=== PATIENT | male | born 1975 | race Caucasian/White ===

== ENCOUNTER 2020-07-08 13:23 | Emergency (ER) | payer BC ==
[2020-07-08 13:44] VITALS: RESP 18
--- NOTE | 2020-07-08 15:00 | ED ---
General Adult HPI - General Source: patient, RN notes reviewed Mode of arrival: ambulatory Limitations: no limitations <Madhu Garay - Last Filed: 07/08/20 18:35> <Sienna Gonzales - Last Filed: 07/20/20 17:44> - General Chief complaint: Recheck/Abnormal Lab/Rx Stated complaint: rt eye irritation, poss foreign body Time Seen by Provider: 07/08/20 14:51 - History of Present Illness Initial comments: Patient is a 44-year-old male that presents to the emergency department complaining of corneal abrasion which was diagnosed at [facility]. He was sent here by [facility] for an elevated blood pressure. He notes that he skipped his physical last year but has one scheduled for a week with his primary care. He notes that he was camping something in his eye rinsed it out came home started using some leftover antibiotic drops that he had a home. He notes that he did try calling his eye doctor but they'll consult. He notes that since using the drops as prescribed on the bottle his eye started to feel better. He did note that he got fluoroscene eye stain at the urgent care which [place] diagnosed with corneal abrasion. He denied any change in vision blurry vision headache lightheadedness dizziness chest pain shortness breath nausea vomiting diarrhea constipation fever fatigue chills (Madhu Garay) - Related Data Previous Rx's Medication Instructions Recorded amLODIPine [Norvasc] 5 mg PO DAILY 14 Days #14 tab 07/08/20 Allergies Allergy/AdvReac Type Severity Reaction Status Date / Time amoxicillin Allergy Rash/Hives Verified 07/08/20 13:41 Review of Systems ROS Other: All systems not noted in ROS Statement are negative. <Madhu Garay - Last Filed: 07/08/20 18:35> ROS Other: All systems not noted in ROS Statement are negative. <Sienna Gonzales - Last Filed: 07/20/20 17:44> ROS Statement: Those systems with pertinent positive or pertinent negative responses have been documented in the HPI. Past Medical History Past Medical History: No Reported History History of Any Multi-Drug Resistant Organisms: None Reported Past Surgical History: Orthopedic Surgery Additional Past Surgical History / Comment(s): left ankle surgery, left elbow, Past Psychological History: No Psychological Hx Reported Smoking Status: Current every day smoker Past Alcohol Use History: Daily Past Drug Use History: None Reported <Madhu Garay - Last Filed: 07/08/20 18:35> General Exam Limitations: no limitations General appearance: alert, in no apparent distress Head exam: Present: atraumatic, normocephalic, normal inspection Eye exam: Present: normal appearance, PERRL, EOMI, conjunctival injection (Right eye). Absent: scleral icterus, periorbital swelling ENT exam: Present: normal exam, mucous membranes moist Neck exam: Present: normal inspection Respiratory exam: Present: normal lung sounds bilaterally. Absent: respiratory distress, wheezes, rales, rhonchi, stridor Cardiovascular Exam: Present: regular rate, normal rhythm, normal heart sounds. Absent: systolic murmur, diastolic murmur, rubs, gallop, clicks GI/Abdominal exam: Present: soft, normal bowel sounds. Absent: distended, tenderness, guarding, rebound, rigid Extremities exam: Present: normal inspection, full ROM, normal capillary refill. Absent: tenderness, pedal edema, joint swelling, calf tenderness Neurological exam: Present: alert, oriented X3, CN II-XII intact Psychiatric exam: Present: normal affect, normal mood Skin exam: Present: warm, dry, intact, normal color. Absent: rash <Madhu Garay - Last Filed: 07/08/20 18:35> Course Vital Signs 07/08/20 07/08/20 07/08/20 13:41 16:48 17:39 Temperature 98.4 F Pulse Rate 100 83 81 Respiratory 18 18 18 Rate Blood Pressure 157/100 168/110 163/115 O2 Sat by Pulse 98 97 95 Oximetry 07/08/20 07/08/20 18:30 18:54 Temperature 98 F Pulse Rate 75 76 Respiratory 18 18 Rate Blood Pressure 164/104 154/102 O2 Sat by Pulse 97 96 Oximetry Medical Decision Making - Lab Data Result diagrams: 07/08/20 15:17 07/08/20 15:17 <Madhu Garay - Last Filed: 07/08/20 18:35> - Lab Data Result diagrams: 07/08/20 15:17 07/08/20 15:17 <Sienna Gonzales - Last Filed: 07/20/20 17:44> - Medical Decision Making 44-year-old male sent here by [facility] for recheck and evaluation of high blood pressure. Basic labs, patient monitor initiated. Blood pressure elevated while in bed, 5 mg of Norvasc ordered. 20 mg labetalol ordered. Patient denies any symptoms of elevated blood pressure such as headache change in vision. Case discussed with Dr. Gonzales, patient can discharge home follow up primary care. (Madhu Garay) I was available for consultation in the emergency department. The history and physical exam were done by the midlevel provider. I was consulted for this patients care. I reviewed the case with the midlevel provider and based on their presentation of the patient, I agree with the assessment, medical decision making and plan of care as documented. Chart was dictated using [employer] dictation software. Attempts were made to correct any dictation errors however some typographical errors may persist. Patient was seen during a national state of emergency due to the Covid-19 pandemic. (Sienna Gonzales) - Lab Data Lab Results 07/08/20 07/08/20 Range/Units 15:17 15:17 WBC 7.7 (3.8-10.6) k/uL RBC 5.08 (4.30-5.90) m/uL Hgb 17.1 (13.0-17.5) gm/dL Hct 49.6 (39.0-53.0) % MCV 97.7 (80.0-100.0) fL MCH 33.7 (25.0-35.0) pg MCHC 34.5 (31.0-37.0) g/dL RDW 12.1 (11.5-15.5) % Plt Count 243 (150-450) k/uL MPV 6.9 Neutrophils % 63 % Lymphocytes % 29 % Monocytes % 5 % Eosinophils % 2 % Basophils % 1 % Neutrophils # 4.8 (1.3-7.7) k/uL Lymphocytes # 2.2 (1.0-4.8) k/uL Monocytes # 0.4 (0-1.0) k/uL Eosinophils # 0.2 (0-0.7) k/uL Basophils # 0.1 (0-0.2) k/uL Sodium 139 (137-145) mmol/L Potassium 4.3 (3.5-5.1) mmol/L Chloride 105 (98-107) mmol/L Carbon Dioxide 30 (22-30) mmol/L Anion Gap 4 mmol/L BUN 8 L (9-20) mg/dL Creatinine 0.69 (0.66-1.25) mg/dL Est GFR (CKD-EPI)AfAm >90 (>60 ml/min/1.73 sqM) Est GFR (CKD-EPI)NonAf >90 (>60 ml/min/1.73 sqM) Glucose 103 H (74-99) mg/dL Calcium 9.9 (8.4-10.2) mg/dL Total Bilirubin 0.5 (0.2-1.3) mg/dL AST 31 (17-59) U/L ALT 23 (4-49) U/L Alkaline Phosphatase 77 (38-126) U/L Total Protein 7.3 (6.3-8.2) g/dL Albumin 4.6 (3.5-5.0) g/dL Disposition Is patient prescribed a controlled substance at d/c from ED?: No Time of Disposition: 18:36 <Madhu Garay - Last Filed: 07/08/20 18:35> <Sienna Gonzales - Last Filed: 07/20/20 17:44> Clinical Impression: Elevated blood pressure reading Disposition: HOME SELF-CARE Condition: Stable Instructions (If sedation given, give patient instructions): Hypertension (ED) Additional Instructions: Please return to the Emergency Department if symptoms worsen or any other concerns. Follow-up with primary care as planned. Continue to use antibiotic eyedrops for corneal abrasion. If any symptoms such as headache, blurred vision please return for further evaluation. Prescriptions: amLODIPine [Norvasc] 5 mg PO DAILY 14 Days #14 tab Referrals: Molina Miles DO [Primary Care Provider] - 1-2 days
[2020-07-08 15:24] LABS: Basophils # (A) 0.1 k/uL (0-0.2); Basophils % (A) 1 %; Eosinophils # (A) 0.2 k/uL (0-0.7); Eosinophils % (A) 2 %; HCT 49.6 % (39.0-53.0); HGB 17.1 gm/dL (13.0-17.5); Lymphocytes # (A) 2.2 k/uL (1.0-4.8); Lymphocytes % (A) 29 %; MCH 33.7 pg (25.0-35.0); MCHC 34.5 g/dL (31.0-37.0); MCV 97.7 fL (80.0-100.0); Mean Platelet Volume 6.9; Monocytes # (A) 0.4 k/uL (0-1.0); Monocytes % (A) 5 %; Neutrophils # (A) 4.8 k/uL (1.3-7.7); Neutrophils % (A) 63 %; Platelet Count 243 k/uL (150-450); RBC 5.08 m/uL (4.30-5.90); RDW 12.1 % (11.5-15.5); WBC 7.7 k/uL (3.8-10.6)
[2020-07-08 15:34] LABS: ALT 23 U/L (4-49); AST 31 U/L (17-59); African American GFR (CKD) >90 (>60 ml/min/1.73 sqM); Albumin 4.6 g/dL (3.5-5.0); Alkaline Phosphatase 77 U/L (38-126); Anion Gap 4 mmol/L; Blood Urea Nitrogen 8 mg/dL (9-20); Calcium 9.9 mg/dL (8.4-10.2); Carbon Dioxide 30 mmol/L (22-30); Chloride 105 mmol/L (98-107); Glucose 103 mg/dL (74-99); Non-African American GFR(CKD) >90 (>60 ml/min/1.73 sqM); Potassium 4.3 mmol/L (3.5-5.1); Sodium 139 mmol/L (137-145); Total Bilirubin 0.5 mg/dL (0.2-1.3); Total Protein 7.3 g/dL (6.3-8.2)
[2020-07-08] MEDS ORDERED: amLODIPine 5 MG TAB PO STA (15:58)
[2020-07-08] MEDS ORDERED: LABETALOL 5 MG/ML VIAL MDV IVP STA (17:52)
[2020-07-08 18:56] VITALS: BP 154/102; PULSE 76; TEMP 98
== END 2020-07-08 18:53 | disposition home or self-care (01) ==
LOC: EC 13:23
DX: R03.0 Elevated blood-pressure reading, without diagnosis of hypertension (principal); F17.200 Nicotine dependence, unspecified, uncomplicated
CPT/HCPCS: 36415; 80053; 85025; 96374; 99283

== ENCOUNTER 2021-10-31 08:08 | Day surgery (SDC) | payer BC ==
[2021-10-29 13:32] VITALS: BMI 28.7
[~2021-10-31 08:08] MED LIST: LACTATED RINGERS 1,000 ML IV SCH
[2021-10-31] MEDS ORDERED: LIDOCAINE 1% (10MG/ML) FOR IV START INTRADERMA ONE (08:40)
[2021-10-31 08:43] VITALS: RESP 16; TEMP 97.9
[2021-10-31] MEDS ORDERED: LIDOCAINE 2% INJ 20 MG/ML (2 ML VIAL) ONE (09:35)
[2021-10-31] MEDS ORDERED: PROPOFOL 10 MG/ML 20 ML VIAL IV ONE (09:35)
--- NOTE | 2021-10-31 10:00 | P.PCN ---
Date of Procedure: 10/31/21 Procedure(s) Performed: BRIEF HISTORY: Patient is a 46-year-old pleasant white male scheduled for an elective colonoscopy as a part of screening for colon cancer and family history of colon cancer. His sister was diagnosed with colon cancer at age 40 and his uncle at age 60. PROCEDURE PERFORMED: Colonoscopy snare polypectomy and biopsy. PREOPERATIVE DIAGNOSIS: Screening for colon cancer/family history of colon cancer. IV sedation per Anesthesia. PROCEDURE: After informed consent was obtained, the patient, was brought into the endoscopy unit. IV sedation was administered by Anesthesia under continuous monitoring. Digital rectal examination was normal. Initially the Olympus CF-160 flexible video colonoscope was then inserted in the rectum, gradually advanced into the cecum without any difficulty. Careful examination was performed as the scope was gradually being withdrawn. Ileocecal valve and the appendiceal orifice were visualized and appeared normal. Prep was excellent. Mucosa of the cecum, ascending colon, appeared normal. The hepatic flexure there was a 2 cm linear polyp that was removed by snare polypectomy followed by biopsy and complete polypectomy was accomplished. In the transverse colon there was a 5 mm polyp removed by snare polypectomy. Rest of the transverse colon, descending colon, sigmoid colon, and rectum appeared normal. In the rectum there was a 3 mm and 5 mm polyp removed by snare polypectomy. Retroflexion was performed in the rectum and no lesions were seen. The patient tolerated the procedure well. IMPRESSION: 2 cm linear hepatic flexure polyp status post polypectomy followed by biopsy 5 mm transverse colon polyp status post polypectomy 3 mm and 5 mm rectal polyps status post polypectomy RECOMMENDATIONS: Findings of this examination were discussed with the patient as well as his family. He was advised to follow with the biopsy results. Recommend repeat colonoscopy in 3 years based on the biopsy results..
[2021-10-31 10:20] VITALS: BP 107/79; PULSE 73
== END 2021-10-31 10:30 | disposition home or self-care (01) ==
LOC: ORWHC2ENDO 08:08
PROVIDERS: ATTEND Internal Medicine Gastroenterology
DX: Z12.11 Encounter for screening for malignant neoplasm of colon (principal); D12.3 Benign neoplasm of transverse colon; K62.1 Rectal polyp; K62.3 Rectal prolapse; Z80.0 Family history of malignant neoplasm of digestive organs; Z88.0 Allergy status to penicillin; I10 Essential (primary) hypertension; E78.5 Hyperlipidemia, unspecified; F17.210 Nicotine dependence, cigarettes, uncomplicated; Z96.621 Presence of right artificial elbow joint; Z96.661 Presence of right artificial ankle joint; Z79.899 Other long term (current) drug therapy
CPT/HCPCS: 88305; 45380; 45385; J2704; J2001

== ENCOUNTER 2022-07-22 13:22 | Observation (INO) | payer BC ==
[2022-07-22] MEDS ORDERED: ASPIRIN 81 MG PO STA (14:09)
[2022-07-22] MEDS ORDERED: HEPARIN SODIUM 1,000 UN/ML (10ML VL) IV ONE (14:09)
[2022-07-22] MEDS ORDERED: HEPARIN SOD,PORK IN 0.45% NACL 25,000 UNIT in 0.45% NACL 1 250ML.BAG IV SCH (14:15)
[2022-07-22 14:43] LABS: Basophils % (A) 0 %; Eosinophils # (A) 0.2 k/uL (0-0.7); Eosinophils % (A) 3 %; HCT 46.6 % (39.0-53.0); HGB 15.6 gm/dL (13.0-17.5); Lymphocytes # (A) 1.6 k/uL (1.0-4.8); Lymphocytes % (A) 26 %; MCH 32.7 pg (25.0-35.0); MCHC 33.4 g/dL (31.0-37.0); Mean Platelet Volume 7.2; Monocytes # (A) 0.5 k/uL (0-1.0); Monocytes % (A) 8 %; Neutrophils # (A) 3.9 k/uL (1.3-7.7); Neutrophils % (A) 62 %; Platelet Count 257 k/uL (150-450); RBC 4.76 m/uL (4.30-5.90); WBC 6.2 k/uL (3.8-10.6)
[2022-07-22 14:52] LABS: ALT 27 U/L (4-49); AST 28 U/L (17-59); African American GFR (CKD) >90 (>60 ml/min/1.73 sqM); Albumin 4.1 g/dL (3.5-5.0); Alkaline Phosphatase 80 U/L (38-126); Anion Gap 10 mmol/L; Blood Urea Nitrogen 12 mg/dL (9-20); Calcium 9.2 mg/dL (8.4-10.2); Carbon Dioxide 26 mmol/L (22-30); Chloride 102 mmol/L (98-107); Glucose 157 mg/dL (74-99); Magnesium 1.9 mg/dL (1.6-2.3); Non-African American GFR(CKD) >90 (>60 ml/min/1.73 sqM); Partial Thromboplastin Time 23.8 sec (22.0-30.0); Potassium 4.1 mmol/L (3.5-5.1); Prothrombin Time 10.4 sec (9.0-12.0); Sodium 138 mmol/L (137-145); Total Bilirubin 0.4 mg/dL (0.2-1.3); Total Protein 6.6 g/dL (6.3-8.2)
--- NOTE | 2022-07-22 15:35 | ED ---
Chest Pain HPI - General Chief Complaint: Chest Pain Stated Complaint: dr ferrari- blood work - muscle injury by heart Time Seen by Provider: 07/22/22 13:58 Source: patient, RN notes reviewed Mode of arrival: ambulatory Limitations: no limitations - History of Present Illness Initial Comments: 47-year-old male presents emergency Department chief complaint of abnormal heart enzymes. Patient went to his PCP this morning for any physical. He was having some indigestion discomfort at the office so he lab work and received a phone call stating his troponin was elevated. Patient does not have current symptoms and chest pain. Patient does have history of hyperlipidemia, hypertension family history and smoking history. Patient denies any prior stress test. Denies back pain - Related Data Home Medications Medication Instructions Recorded Confirmed amLODIPine [Norvasc] 5 mg PO HS 10/29/21 07/22/22 lisinopriL [Zestril] 20 mg PO DAILY 10/29/21 07/22/22 Atorvastatin [Lipitor] 10 mg PO HS 07/22/22 07/22/22 Allergies Allergy/AdvReac Type Severity Reaction Status Date / Time amoxicillin Allergy Rash/Hives Verified 07/22/22 14:41 Review of Systems ROS Statement: Those systems with pertinent positive or pertinent negative responses have been documented in the HPI. ROS Other: All systems not noted in ROS Statement are negative. EKG Findings - EKG Comments: EKG Findings:: EKG performed at 14:01 sinus rhythm rate of 99 ME 154 QRS 88 QT/QTC 337/393 - EKG Results: EKG: interpreted by FERNANDEZ Past Medical History Past Medical History: Hypertension History of Any Multi-Drug Resistant Organisms: None Reported Past Surgical History: Orthopedic Surgery Additional Past Surgical History / Comment(s): left ankle surgery, left elbow, Past Anesthesia/Blood Transfusion Reactions: No Reported Reaction Past Psychological History: No Psychological Hx Reported Smoking Status: Current every day smoker Past Alcohol Use History: Daily Past Drug Use History: Marijuana - Past Family History Sister(s) Family Medical History: Cancer General Exam Limitations: no limitations General appearance: alert, in no apparent distress Head exam: Present: atraumatic, normocephalic, normal inspection Eye exam: Present: normal appearance, PERRL, EOMI. Absent: scleral icterus, conjunctival injection, periorbital swelling ENT exam: Present: normal exam, mucous membranes moist Neck exam: Present: normal inspection. Absent: tenderness, meningismus, lymphadenopathy Respiratory exam: Present: normal lung sounds bilaterally. Absent: respiratory distress, wheezes, rales, rhonchi, stridor Cardiovascular Exam: Present: regular rate, normal rhythm, normal heart sounds. Absent: systolic murmur, diastolic murmur, rubs, gallop, clicks GI/Abdominal exam: Present: soft, normal bowel sounds. Absent: distended, tenderness, guarding, rebound, rigid Course Vital Signs 07/22/22 13:51 Temperature 99 F Pulse Rate 100 Respiratory 20 Rate Blood Pressure 152/88 O2 Sat by Pulse 98 Oximetry Chest Pain MDM - MDM Was pt. sent in by a medical professional or institution (, PA, CARE NAVIGATOR, urgent care, hospital, or care home...) When possible be specific @ -PCP Dr. Miles Did you speak to anyone other than the patient for history (EMS, parent, family, police, friend...)? What history was obtained from this source @ -[Discuss past medical history and laboratory results with in the room] Did you review nursing and triage notes (agree or disagree)? Why? @ -[I reviewed and agree with nursing and triage notes] Were old charts reviewed (outside hosp., previous admission, EMS record, old EKG, old radiological studies, urgent care reports/EKG's, care home records)? Report findings @ -[No old charts were reviewed] Differential Diagnosis (chest pain, altered mental status, abdominal pain women, abdominal pain men, vaginal bleeding, weakness, fever, dyspnea, syncope, headache, dizziness, GI bleed, back pain, seizure, CVA, palpatations, mental health, musculoskeletal)? @ -[Differential Chest Pain: Stable Angina, Unstable Angina, STEMI, NSTEMI Aortic Dissection, Pneumothorax, Musculoskeletal, Esophageal Spasm GERD, Cholecystitis, Pancreatitis, Zoster, this is not meant to be an all-inclusive list. able] EKG interpreted by me (3pts min.). @ -[As above] X-rays interpreted by me (1pt min.). @ -[Chest x-ray shows no acute cardiopulmonary process. No pneumothorax or in filtrate] CT interpreted by me (1pt min.). @ -[None done] U/S interpreted by me (1pt. min.). @ -[None done] What testing was considered but not performed or refused? (CT, X-rays, U/S, labs)? Why? @ -[None] What meds were considered but not given or refused? Why? @ -[None] Did you discuss the management of the patient with other professionals (professionals i.e. , PA, CARE NAVIGATOR, lab, RT, psych nurse, social secretary, contact printer dry film, teacher, pharmaceutical officer, case worker)? Give summary @ -[No] Was smoking cessation discussed for >3mins.? @ -[No] Was critical care preformed (if so, how long)? @ -[No] Were there social determinants of health that impacted care today? How? (Homelessness, low income, unemployed, alcoholism, drug addiction, transportation, low edu. Level, literacy, decrease access to med. care, care home, rehab)? @ -[No] Was there de-escalation of care discussed even if they declined (Discuss DNR or withdrawal of care, Hospice)? DNR status @ -[No] What co-morbidities impacted this encounter? (DM, HTN, Smoking, COPD, CAD, Cancer, CVA, ARF, Chemo, Hep., AIDS, mental health diagnosis, sleep apnea, morbid obesity)? @ -[Hyperlipidemia, hypertension, smoking history] Was patient admitted / discharged? Hospital course, mention meds given and route, prescriptions, significant lab abnormalities, going to OR and other pertinent info. @ -[Admitted patient had outpatient high sensitivity troponin that was elevated. His troponin here is negative patient does have multiple risk factors will be admitted for cardiac rule out.] Undiagnosed new problem with uncertain prognosis? @ -[No] Drug Therapy requiring intensive monitoring for toxicity (Heparin, Nitro, Insulin, Cardizem)? @ -[No] Were any procedures done? @ -[No] Diagnosis/symptom? @ -[Chest pain] Acute, or Chronic, or Acute on Chronic? @ -[Acute] Uncomplicated (without systemic symptoms) or Complicated (systemic symptoms)? @ -[Complicated] Side effects of treatment? @ -[No] Exacerbation, Progression, or Severe Exacerbation? @ -[No] Poses a threat to life or bodily function? How? (Chest pain, [place], [place], pneumonia, PE, COPD, DKA, ARF, appy, cholecystitis, CVA, Diverticulitis, Homicidal, Suicidal, threat to staff... and all critical care pts) @ -[Yes patient has chest and risk for cardiac arrest Disposition Clinical Impression: Chest pain Disposition: ADMITTED IP TO THIS HOSP Referrals: Molina Miles DO [Primary Care Provider] - 1-2 days Time of Disposition: 16:11
--- NOTE | 2022-07-22 16:10 | XR ---
EXAMINATION TYPE: XR chest 2V DATE OF EXAM: 07/22/2022 COMPARISON: NONE HISTORY: Chest pain. TECHNIQUE: Frontal and lateral views of the chest are obtained. FINDINGS: There is no focal air space opacity, pleural effusion, or pneumothorax seen. The cardiac silhouette size is within normal limits. Dextroconvex scoliosis centered mid thoracic spine. Overlyin g EKG leads. IMPRESSION: No acute cardiopulmonary process.
[2022-07-22] MEDS ORDERED: NITROGLYCERIN SL TABS 0.4 MG TAB SUBLINGUAL PRN (16:11)
[2022-07-22] MEDS ORDERED: amLODIPine 5 MG TAB PO SCH (21:00)
[2022-07-22] MEDS ORDERED: ATORVASTATIN 10 MG TAB PO SCH (21:00)
[2022-07-22] MEDS ORDERED: HEPARIN SODIUM 1,000 UN/ML (10ML VL) IV PRN (23:38)
[2022-07-23 00:34] VITALS: RESP 18
[2022-07-23 07:29] VITALS: BP 128/87; PULSE 75; TEMP 97.9
[2022-07-23] MEDS ORDERED: ASPIRIN 325 MG TAB PO SCH (09:00)
[2022-07-23] MEDS ORDERED: lisinopriL 20 MG TAB PO SCH (09:00)
--- NOTE | 2022-07-23 10:07 | P.CRDCN ---
History of Present Illness History of present illness: HISTORY OF PRESENT ILLNESS: This is a 47-year-old male with a past medical history significant for hypertension and hyperlipidemia. 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 We have been asked to see the patient in consultation for chest pain. Patient examined at the bedside. Patient states yesterday he went for a routine physical at his primary care office. He mentioned to his physician that he has been having heartburn recently. Apparently they gigi a troponin level which came in to be abnormal. Records from their office revealed a high sensitivity troponin level of 183. The patient was directed to come to the emergency room. The patient has had 3 subsequent negative troponin levels drawn at the hospital. The patient denies having any chest pain or pressure. He denies any shortness of breath. He states he is feeling well and is hoping to be discharged home. * EKG reveals sinus mechanism with no signs of acute ischemia * Chest xray negative for acute process * Laboratory data: WBC 6.2. Hemoglobin 15.6. Platelet count 257. Sodium 138. Potassium 4.1. BUN 12. Creatinine 0.62. Magnesium 1.9. Troponin negative 3. * Current home cardiac medications include lisinopril 20 mg daily, amlodipine 5 mg at night, and Lipitor 10 mg at night REVIEW OF SYSTEMS: At the time of my exam: CONSTITUTIONAL: Denies fever or chills. HEENT: Denies blurred vision, vision changes, or eye pain. Denies hemoptysis CARDIOVASCULAR: Denies chest pain. Denies orthopnea. Denies PND. Denies palpitations RESPIRATORY: Denies shortness of breath. GASTROINTESTINAL: Denies abdominal pain. Denies nausea or vomiting. HEMATOLOGIC: Denies bleeding disorders. GENITOURINARY: Denies any blood in urine. SKIN: Denies pruitis. Denies rash. PHYSICAL EXAM: VITAL SIGNS: Reviewed. GENERAL: Well-developed in no acute distress. HEENT: Head is normocephalic. Pupils are equal, round. Sclerae anicteric. Mucous membranes of the mouth are moist. Neck supple. No JVD or thyromegaly LUNGS: Respirations even and unlabored. Lungs essentially clear to auscultation bilaterally. HEART: Regular rate and rhythm. S1 and S2 heard. ABDOMEN: Soft. Nondistended. Nontender. EXTREMITIES: Normal range of motion. No clubbing or cyanosis. Peripheral pulses intact. No lower extremity edema NEUROLOGIC: Awake and alert. Oriented x 3. ASSESSMENT: Chest pain, ruled out, patient denies having any chest pain or pressure Elevated troponin at his PCP office, possible lab error as patient has had 3 subsequent negative troponins here Hypertension Hyperlipidemia PLAN: Acute coronary event has been ruled out Resume home cardiac medications Increase Lipitor to 20 mg at night Patient to be discharged home today from a cardiac standpoint Will complete echocardiogram and stress test on an outpatient basis Nurse practitioner note has been reviewed by physician. Signing provider agrees with the documented findings, assessment, and plan of care. Past Medical History Past Medical History: Hypertension History of Any Multi-Drug Resistant Organisms: None Reported Past Surgical History: Orthopedic Surgery Additional Past Surgical History / Comment(s): left ankle surgery, left elbow, Past Anesthesia/Blood Transfusion Reactions: No Reported Reaction Past Psychological History: No Psychological Hx Reported Smoking Status: Current every day smoker Past Alcohol Use History: Daily Additional Past Alcohol Use History / Comment(s): STARTED SMOKING AT AGE 15 SMOKES 1PPD DRINKS 25-30 BEERS PER WEEK Past Drug Use History: Marijuana - Past Family History Sister(s) Family Medical History: Cancer Medications and Allergies Home Medications Medication Instructions Recorded Confirmed Type amLODIPine [Norvasc] 5 mg PO HS 10/29/21 07/22/22 History lisinopriL [Zestril] 20 mg PO DAILY 10/29/21 07/22/22 History Atorvastatin [Lipitor] 10 mg PO HS 07/22/22 07/22/22 History Allergies Allergy/AdvReac Type Severity Reaction Status Date / Time amoxicillin Allergy Rash/Hives Verified 07/22/22 14:41 Physical Exam Vitals: Vital Signs Temp Pulse Pulse Resp BP BP Pulse Ox 07/23/22 07:05 97.9 F 75 18 128/87 97 07/23/22 00:33 98.3 F 68 18 119/77 95 07/22/22 20:35 98.4 F 75 17 173/82 94 L 07/22/22 19:39 78 14 128/83 97 07/22/22 13:51 99 F 100 20 152/88 98 Intake and Output 07/22/22 07/23/22 07/23/22 22:59 06:59 14:59 Intake Total 80.5 Balance 80.5 Intake: Intake, IV Titration 80.5 Amount Heparin Sod,Pork in 0.45% 80.5 NaCl 25,000 unit In 0.45 % NaCl 1 250ml.bag @ 11. 03 UNITS/KG/HR 10.006 mls /hr IV .Q24H [facility] Rx#: [id number] Other: # Voids 1 1 Weight 90.718 kg Results 07/22/22 14:27 07/22/22 14:27 Cardiac Enzymes 07/22/22 07/22/22 07/22/22 Range/Units 14:27 14:27 16:37 AST 28 (17-59) U/L Troponin I <0.012 <0.012 (0.000-0.034) ng/mL 07/22/22 Range/Units 19:31 AST (17-59) U/L Troponin I <0.012 (0.000-0.034) ng/mL Coagulation 07/22/22 07/22/22 07/23/22 Range/Units 14:27 22:48 06:20 PT 10.4 (9.0-12.0) sec APTT 23.8 33.7 H 73.8 H (22.0-30.0) sec CBC 07/22/22 Range/Units 14:27 WBC 6.2 (3.8-10.6) k/uL RBC 4.76 (4.30-5.90) m/uL Hgb 15.6 (13.0-17.5) gm/dL Hct 46.6 (39.0-53.0) % Plt Count 257 (150-450) k/uL Comprehensive Metabolic Panel 07/22/22 Range/Units 14:27 Sodium 138 (137-145) mmol/L Potassium 4.1 (3.5-5.1) mmol/L Chloride 102 (98-107) mmol/L Carbon Dioxide 26 (22-30) mmol/L BUN 12 (9-20) mg/dL Creatinine 0.62 L (0.66-1.25) mg/dL Glucose 157 H (74-99) mg/dL Calcium 9.2 (8.4-10.2) mg/dL AST 28 (17-59) U/L ALT 27 (4-49) U/L Alkaline Phosphatase 80 (38-126) U/L Total Protein 6.6 (6.3-8.2) g/dL Albumin 4.1 (3.5-5.0) g/dL Current Medications Generic Name Dose Route Start Last Admin Trade Name Freq PRN Reason Stop Dose Admin Amlodipine Besylate 5 mg 07/22/22 21:00 07/22/22 21:07 Amlodipine 5 Mg Tab PO 5 mg HS COTY Administration Aspirin 325 mg 07/23/22 09:00 Aspirin 325 Mg Tab PO DAILY [facility] Atorvastatin Calcium 10 mg 07/22/22 21:00 07/22/22 21:07 Atorvastatin 10 Mg Tab PO 10 mg HS COTY Administration Heparin Sodium (Porcine) 0 unit 07/22/22 23:38 07/22/22 23:53 Heparin Sodium 1,000 Un/Ml (10ml Vl) IV 4,000 unit PER PROTOCOL PRN Administration Low PTT Protocol Heparin Sodium/Sodium Chloride 250 mls @ 10.006 mls/hr 07/22/22 14:15 07/22/22 23:31 25,000 unit/ Sodium Chloride IV 14.02 units/kg/hr .Q24H COTY 12.719 mls/hr Titration Protocol 11.03 UNITS/KG/HR Lisinopril 20 mg 07/23/22 09:00 Lisinopril 20 Mg Tab PO DAILY [facility] Nitroglycerin 0.4 mg 07/22/22 16:11 Nitroglycerin Sl Tabs 0.4 Mg Tab SUBLINGUAL Q5M PRN Chest Pain Intake and Output 07/22/22 07/23/22 07/23/22 22:59 06:59 14:59 Intake Total 80.5 Balance 80.5 Intake: Intake, IV Titration 80.5 Amount Heparin Sod,Pork in 0.45% 80.5 NaCl 25,000 unit In 0.45 % NaCl 1 250ml.bag @ 11. 03 UNITS/KG/HR 10.006 mls /hr IV .Q24H [facility] Rx#: [id number] Other: # Voids 1 1 Weight 90.718 kg 07/22/22 14:27 07/22/22 14:27
[2022-07-23 11:15] LABS: LDL Cholesterol,Calculated 70.6 mg/dL (0.0-131.0); VLDL Calculation 17.12 mg/dL (5.00-40.00)
--- NOTE | 2022-07-23 18:23 | P.HPIM ---
History of Present Illness H&P Date: 07/23/22 Chief Complaint: Uncomfortable chest pain This is a pleasant [address] Miles. Chronic stable medical conditions include hypertension, hyperlipidemia, nicotine dependence. Patient called for a physical exam to his family doctor. There he felt this uncomfortable sensation in the middle of the chest. Last about 15 minutes. No radiation. No dizziness no lightheadedness or shortness of breath. Apparently there was a small blip and positive troponin. Patient therefore was sent down to the ER. Troponin 0 been negative. Denies any shortness of breath. No prior cardiac history Review of systems: GEN.: None EYES: None HEENT: None NECK: None RESPIRATORY: None CARDIOVASCULAR: As above GASTROINTESTINAL: None GENITOURINARY: None MUSCULOSKELETAL: None LYMPHATICS: None HEMATOLOGICAL: None PSYCHIATRY: None NEUROLOGICAL: None Past medical history to include: Hypertension, hyperlipidemia Social history: Lives with his . Is a budget officer. Smokes a pack and a half a close to 32 years. Takes about 6-8 beers a night. Physical examination: VITAL SIGNS: 97.9, 75, 18, 128/87, 97% room air GENERAL: BMI 28.7, sitting up but awake comfortable. EYES: Pupils equal. Conjunctiva normal. HEENT: External appearance of nose and ears normal, oral cavity grossly normal. NECK: JVD not raised; masses not palpable. HEART: First and second heart sounds are normal; no edema. LUNGS: Respiratory rate normal; clear to auscultation. ABDOMEN: Soft, nontender, liver spleen not palpable, no masses palpable. PSYCH: Alert and oriented x3; mood and affect normal. MUSCULOSKELETAL:No Clubbing/cyanosis;muscles-grossly intact NEUROLOGICAL: Cranial nerves grossly intact; no facial asymmetry, power and sensation grossly intact. LYMPHATICS: No lymph nodes palpable in the axilla and neck INVESTIGATIONS, reviewed in the clinical context: White count 6.2 hemoglobin 15.6 platelets 257 potassium 4.1 creatinine 0.62 Troponin I less than 0.0123 LDL 70.6 EKG tracing personally reviewed by me-no sinus rhythm Chest x-ray film personally reviewed by me-hyperinflation Assessment and plan: -Anterior chest wall pain. Rule out cardiac cause. This factors include smoking, hypertension, hyperlipidemia. Troponin is negative. Cardiology consulted. -Essential hypertension Zestril, amlodipine -Hyperlipidemia Lipitor -Chronic nicotine dependence, cigarette smoker Nicotine patch. Counseled -Alcohol use disorder Patient counseled Past Medical History Past Medical History: Hypertension History of Any Multi-Drug Resistant Organisms: None Reported Past Surgical History: Orthopedic Surgery Additional Past Surgical History / Comment(s): left ankle surgery, left elbow, Past Anesthesia/Blood Transfusion Reactions: No Reported Reaction Past Psychological History: No Psychological Hx Reported Smoking Status: Current every day smoker Past Alcohol Use History: Daily Additional Past Alcohol Use History / Comment(s): STARTED SMOKING AT AGE 15 SMOKES 1PPD DRINKS 25-30 BEERS PER WEEK Past Drug Use History: Marijuana - Past Family History Sister(s) Family Medical History: Cancer Medications and Allergies Home Medications Medication Instructions Recorded Confirmed Type amLODIPine [Norvasc] 5 mg PO HS 10/29/21 07/22/22 History lisinopriL [Zestril] 20 mg PO DAILY 10/29/21 07/22/22 History Aspirin 81 mg PO DAILY #30 tab 07/23/22 Rx Atorvastatin [Lipitor] 20 mg PO HS #30 tab 07/23/22 Rx Nicotine 21Mg/24Hr Patch [Habitrol] 1 each TRANSDERM DAILY #14 patch 07/23/22 Rx Allergies Allergy/AdvReac Type Severity Reaction Status Date / Time amoxicillin Allergy Rash/Hives Verified 07/22/22 14:41 Physical Exam Vitals: Vital Signs Temp Pulse Pulse Resp BP BP Pulse Ox 07/23/22 07:05 97.9 F 75 18 128/87 97 07/23/22 00:33 98.3 F 68 18 119/77 95 07/22/22 20:35 98.4 F 75 17 173/82 94 L 07/22/22 19:39 78 14 128/83 97 07/22/22 13:51 99 F 100 20 152/88 98 Intake and Output 07/22/22 07/23/22 07/23/22 22:59 06:59 14:59 Intake Total 80.5 Balance 80.5 Intake: Intake, IV Titration 80.5 Amount Heparin Sod,Pork in 0.45% 80.5 NaCl 25,000 unit In 0.45 % NaCl 1 250ml.bag @ 11. 03 UNITS/KG/HR 10.006 mls /hr IV .Q24H COTY Rx#: [id number] Other: # Voids 1 1 Weight 90.718 kg Results CBC & Chem 7: 07/22/22 14:27 07/22/22 14:27 Labs: Abnormal Lab Results - Last 24 Hours (Table) 07/22/22 07/22/22 07/23/22 Range/Units 14:27 22:48 06:20 APTT 33.7 H 73.8 H (22.0-30.0) sec Creatinine 0.62 L (0.66-1.25) mg/dL Glucose 157 H (74-99) mg/dL Thrombosis Risk Factor Assmnt - Choose All That Apply Any of the Below Risk Factors Present?: Yes Each Factor Represents 1 point: Age 41-60 years, Obesity (BMI >25) Other Risk Factors: No Other congenital or acquired thrombophilia - If yes, enter type in comment: No Thrombosis Risk Factor Assessment Total Risk Factor Score: 2 Thrombosis Risk Factor Assessment Level: Low Risk
--- NOTE | 2022-07-23 18:24 | P.DS ---
Providers Date of admission: 07/22/22 16:16 Expected date of discharge: 07/23/22 Attending physician: Johnathan Feldman Primary care physician: Molnia Miles [facility] Course: Chief Complaint: Uncomfortable chest pain This is a pleasant [address] Miles. Chronic stable medical conditions include hypertension, hyperlipidemia, nicotine dependence. Patient called for a physical exam to his family doctor. There he felt this uncomfortable sensation in the middle of the chest. Last about 15 minutes. No radiation. No dizziness no lightheadedness or shortness of breath. Apparently there was a small blip and positive troponin. Patient therefore was sent down to the ER. Troponin 0 been negative. Denies any shortness of breath. No prior cardiac history Patient's troponin is 0 negative. Seen by cardiology. For outpatient echocardiogram and possible stress test. Patient advised against smoking and alcohol. Aspirin added. Lipitor increased to 20 mg. Past medical history to include: Hypertension, hyperlipidemia Social history: Lives with his . 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 Takes about 6-8 beers a night. Physical examination: VITAL SIGNS: 97.9, 75, 18, 128/87, 97% room air GENERAL: BMI 28.7, sitting up but awake comfortable. EYES: Pupils equal. Conjunctiva normal. HEENT: External appearance of nose and ears normal, oral cavity grossly normal. NECK: JVD not raised; masses not palpable. HEART: First and second heart sounds are normal; no edema. LUNGS: Respiratory rate normal; clear to auscultation. ABDOMEN: Soft, nontender, liver spleen not palpable, no masses palpable. PSYCH: Alert and oriented x3; mood and affect normal. MUSCULOSKELETAL:No Clubbing/cyanosis;muscles-grossly intact NEUROLOGICAL: Cranial nerves grossly intact; no facial asymmetry, power and sensation grossly intact. LYMPHATICS: No lymph nodes palpable in the axilla and neck INVESTIGATIONS, reviewed in the clinical context: White count 6.2 hemoglobin 15.6 platelets 257 potassium 4.1 creatinine 0.62 Troponin I less than 0.0123 LDL 70.6 EKG tracing personally reviewed by me-no sinus rhythm Chest x-ray film personally reviewed by me-hyperinflation Assessment and plan: -Anterior chest wall pain. Rule out cardiac cause. This factors include smoking, hypertension, hyperlipidemia. Troponin is negative. Cardiology consulted. Aspirin. Follow-up with Dr. Rajesh Alva, cardiology outpatient -Essential hypertension Zestril, amlodipine -Hyperlipidemia Lipitor 20 mg daily at bedtime. -Chronic nicotine dependence, cigarette smoker Nicotine patch. Counseled -Alcohol use disorder Patient counseled Plan - Discharge Summary Discharge Rx Participant: No New Discharge Prescriptions: New Nicotine 21Mg/24Hr Patch [Habitrol] 1 each TRANSDERM DAILY #14 patch Aspirin 81 mg PO DAILY #30 tab Atorvastatin [Lipitor] 20 mg PO HS #30 tab Continue lisinopriL [Zestril] 20 mg PO DAILY amLODIPine [Norvasc] 5 mg PO HS Discontinued Atorvastatin [Lipitor] 10 mg PO HS Discharge Medication List amLODIPine [Norvasc] 5 mg PO HS 10/29/21 [History] lisinopriL [Zestril] 20 mg PO DAILY 10/29/21 [History] Aspirin 81 mg PO DAILY #30 tab 07/23/22 [Rx] Atorvastatin [Lipitor] 20 mg PO HS #30 tab 07/23/22 [Rx] Nicotine 21Mg/24Hr Patch [Habitrol] 1 each TRANSDERM DAILY #14 patch 07/23/22 [Rx] Follow up Appointment(s)/Referral(s): Rajesh Alva MD [STAFF PHYSICIAN] - 1 Week ([facility] will call patient with appointment date and time.) Molina Miles DO [Primary Care Provider] - 1-2 days Discharge Disposition: HOME SELF-CARE
[2022-07-23] MEDS ORDERED: ATORVASTATIN 20 MG TAB PO SCH (21:00)
== END 2022-07-23 12:16 | disposition home or self-care (01) ==
LOC: EC 13:22 → 6NMEDSUR 16:16
PROVIDERS: ADMIT Hospitalist; ATTEND Hospitalist
DX: R07.89 Other chest pain (principal); E78.5 Hyperlipidemia, unspecified; I10 Essential (primary) hypertension; M41.84 Other forms of scoliosis, thoracic region; F17.210 Nicotine dependence, cigarettes, uncomplicated; F10.90 Alcohol use, unspecified, uncomplicated; F12.90 Cannabis use, unspecified, uncomplicated; Z79.899 Other long term (current) drug therapy; Z88.1 Allergy status to other antibiotic agents; Z80.9 Family history of malignant neoplasm, unspecified
CPT/HCPCS: 96366 ×3; 96365; 99285; 36415; 93005; 83880; 80061; 80053; 83735; 84484; 85025; 85610; 85730 ×2; 71046; G0378 ×2; J1644 ×2